=== PATIENT | male | born 1995 | race Caucasian/White ===

== ENCOUNTER 2022-03-28 16:03 | Emergency (ER) | payer MEDICAID, SELFPAY ==
--- NOTE | ~2022-03-28 | US_ITS ---
EXAMINATION: US SCROTUM CLINICAL INFORMATION: Left testicular pain. COMPARISON: None TECHNIQUE: A sonogram of the scrotum was performed assessing warner-scale appearance and color Doppler flow. Spectral Doppler analysis of the arterial and venous flow were performed in the testes bilaterally. FINDINGS: RIGHT: Right testicle measures 4.2 x 2.0 x 3.0 cm, volume 12.8 mL. No focal testicular parenchymal lesions are visualized. Scrotolith noted along the margin of the right testicle measuring 0.2 cm. Spectral Doppler analysis of the arterial and venous flow appears mildly increased in the right testis. Right epididymal head is normal in size. Hypoechoic structure in the right epididymal head measures up to 0.7 cm, suggestive of a cyst. Small right hydrocele. No right varicocele is seen. Right epididymal Doppler flow is normal. LEFT: Left testicle measures 4.3 x 2.3 x 2.5 cm, volume 12.5 mL. No focal testicular parenchymal lesions are visualized. Testicular microlithiasis is noted. Spectral Doppler analysis of the arterial and venous flow appears mildly increased in the left testis. Left epididymis appears somewhat prominent in size. No left hydrocele or varicocele is seen. Left epididymal Doppler flow is increased. US/US scrotum doppler IMPRESSION: 1. Increased flow in the left epididymis, raising the possibility of epididymitis. 2. No findings to suggest testicular torsion. 3. Small right hydrocele. 4. Left testicular microlithiasis is present without intratesticular mass or other worrisome findings. In the absence of any other risk factors for testicular cancer (e.g. Personal history of testicular cancer, a father or brother with testicular cancer, history of cryptorchidism or maldescent, testicular atrophy, or other risk factors), no further imaging or biochemical follow-up is necessary; all that is recommended is routine monthly testicular self-examination. However, if the patient has risk factors for testicular cancer, referral to a urologist for evaluation and determination of an optimal follow-up strategy is recommended.
[2022-03-28 17:58] VITALS: BP 132/77; PULSE 72; RESP 20; TEMP 36.8; O2SAT 97; BMI 25.7
[2022-03-28 19:59] LABS: MANUAL DIFF FLAG NO
[2022-03-28 20:04] LABS: Basophils Percent Auto 0.4 % (0-2); Eosinophils Absolute Auto 0.3 X10*3/uL (0.0-0.4); Eosinophils Percent Auto 3.6 % (0-4); Imm Gran Abs Auto 0.01 X10*3/uL (0.00-0.03); Imm Gran Pct Auto 0.1 % (0.0-0.4); Lymphocytes Absolute Auto 2.7 X10*3/uL (1.2-4.9); Lymphocytes Percent Auto 39.3 % (20-40); Mean Corpuscular HGB Conc 33.3 g/dl (31.0-36.0); Mean Corpuscular Hemoglobin 30.4 pg (27.0-33.0); Mean Corpuscular Volume 91.3 fL (80.0-98.0); Mean Platelet Volume 10.1 fL (9.4-12.4); Monocytes Absolute Auto 0.5 X10*3/uL (0.1-1.2); Monocytes Percent Auto 7.6 % (2-11); Neutrophils Absolute Auto 3.4 x10*3/uL (2.0-8.3); Platelet Count 318 X10*3/uL (160-400); Red Blood Count 4.27 X10*6/uL (4.60-5.80); Red Cell Distribution Width 12.5 % (11.0-16.0); White Blood Count 6.9 X10*3/uL (4.8-10.8)
[2022-03-28 20:17] LABS: COVID-19 Test Negative (Negative)
[2022-03-28 20:32] LABS: Alanine Aminotransferase 25 U/L (0-40); Albumin Level 4.3 g/dL (3.5-5.0); Alkaline Phosphatase 114 U/L (39-117); Anion Gap 13 (12-20); Aspartate Amino Transferase 32 U/L (5-37); Bilirubin Total 0.2 mg/dL (0.0-1.0); Blood Urea Nitrogen 16 mg/dL (9-16); Calcium 9.1 mg/dL (8.4-10.2); Carbon Dioxide 24 mmol/L (22-29); Chloride 105 mmol/L (96-108); Creatinine Clr Calc Pharmacy 88.5; Estimated Glomerular Filt Rate > 60; Glucose Random 127 mg/dL (60-115); Potassium 4.1 mmol/L (3.3-5.1); Sodium 138 mmol/L (135-145)
== END 2022-03-28 22:56 | disposition left against medical advice (07) ==
PROVIDERS: Physician Assistant; Emergency Provider Emergency Medicine
DX: N43.3 Hydrocele, unspecified (principal); K62.5 Hemorrhage of anus and rectum; R31.9 Hematuria, unspecified; N50.811 Right testicular pain; R10.31 Right lower quadrant pain; Z20.822 Contact with and (suspected) exposure to COVID-19
CPT/HCPCS: 76870; 80053; 83735; 85025; 87635; 93975; 99281; 99284